=== PATIENT | male | born 1940 | race Caucasian/White ===

== ENCOUNTER → 2019-09-05 | Outpatient (CLI) | payer MEDICARE, OTHER ==
[2019-09-05 16:55] LABS: Basophils # (auto) 0.1 10 ^3/uL (0-0.2); Basophils % (auto) 1.3 % (0.0-2.0); Eosinophils # (auto) 0.6 10 ^3/uL (0-0.8); Eosinophils % (auto) 8.6 % (0.0-7.0); Hemoglobin 13.2 g/dL (13.5-17.5); Lymphocytes # (auto) 1.2 10 ^3/uL (0.4-5.4); Lymphocytes % (auto) 17.5 % (10.0-50.0); Mean Corpuscular Hemoglobin 30.3 pg (28.0-32.0); Mean Corpuscular Hgb Conc. 32.9 g/dL (32.0-36.0); Mean Corpuscular Volume 91.9 fL (80.0-100.0); Monocytes # (auto) 0.8 10 ^3/uL (0-1.3); Monocytes % (auto) 10.9 % (0.0-12.0); Neutrophils # (auto) 4.3 10 ^3/uL (1.6-8.6); Neutrophils % (auto) 61.7 % (37.0-80.0); Nucleated Red Blood Cells % 0.1 %; Platelet Count (auto) 250 10^3/uL (140-450); Red Blood Cells 4.35 10^6/uL (4.5-5.90); Red Cell Distribution Width 15.1 % (11.8-14.3)
[2019-09-05 17:10] LABS: Urine Bacteria MOD /hpf (None Seen); Urine Blood 1+ /uL (Negative); Urine Mucus FEW (None Seen); Urine Specific Gravity 1.019 (1.001-1.035); Urine WBC 678 /hpf (0 - 3); Urine WBC Clumps PRESENT /hpf (None Seen)
[2019-09-05 17:11] LABS: Albumin 3.4 g/dL (3.4-5.0); Calcium 9.2 mg/dL (8.5-10.1); Potassium 4.2 mmol/L (3.5-5.1)
[2019-09-05 17:16] LABS: Bilirubin, Total 0.2 mg/dL (0.2-1.0); Total Protein 7.2 g/dL (6.4-8.2)
[2019-09-05 17:20] LABS: Folate (Folic Acid) 6.59 ng/mL (5.38-24)
== END | disposition home or self-care (01) ==
LOC: LAB 16:06
PROVIDERS: ATTEND Internal Medicine
DX: I10 Essential (primary) hypertension (principal); E55.9 Vitamin D deficiency, unspecified; R73.03 Prediabetes; Z00.00 Encounter for general adult medical examination without abnormal findings
CPT/HCPCS: 36415; 80053; 80061; 81001; 82306; 82607; 82746; 83036; 84443; 85025

== ENCOUNTER 2022-02-03 22:34 | Inpatient (IN) | payer MEDICARE, OTHER ==
[~2022-02-03] VITALS: Ht 177.8 cm; Wt 83.3 kg
[2022-02-03] MEDS ORDERED: ONDANSETRON HCL 4 MG/2 ML VIAL IV ONE (23:45)
[2022-02-03] MEDS ORDERED: MORPHINE SULFATE INJ 2 MG/ml SYRG IV ONE (23:45)
[2022-02-04 00:04] LABS: Basophils # (auto) 0.2 10 ^3/uL (0-0.2); Basophils % (auto) 1.7 % (0.0-2.0); Eosinophils # (auto) 0.2 10 ^3/uL (0-0.8); Hematocrit 41.2 % (41.0-53.0); Hemoglobin 13.4 g/dL (13.5-17.5); Lymphocytes # (auto) 1.4 10 ^3/uL (0.4-5.4); Lymphocytes % (auto) 13.5 % (10.0-50.0); Mean Corpuscular Hemoglobin 29.7 pg (28.0-32.0); Mean Corpuscular Hgb Conc. 32.6 g/dL (32.0-36.0); Mean Corpuscular Volume 91.1 fL (80.0-100.0); Monocytes # (auto) 1.1 10 ^3/uL (0-1.3); Monocytes % (auto) 11.1 % (0.0-12.0); Neutrophils # (auto) 7.2 10 ^3/uL (1.6-8.6); Neutrophils % (auto) 71.7 % (37.0-80.0); Red Blood Cells 4.52 10^6/uL (4.5-5.90); Red Cell Distribution Width 14.6 % (11.8-14.3); White Blood Cell 10.1 10^3/uL (4.4-10.8)
[2022-02-04 00:24] LABS: Albumin 3.6 g/dL (3.4-5.0); BUN/Creatinine Ratio 14.2; Calcium 9.8 mg/dL (8.5-10.1); Potassium 4.1 mmol/L (3.5-5.1)
[2022-02-04 00:27] LABS: Bilirubin, Total 0.6 mg/dL (0.2-1.0); Total Protein 7.7 g/dL (6.4-8.2)
[2022-02-04] MEDS ORDERED: SODIUM CHLORIDE 0.9% 1,000 ML IV ONE (01:30)
[2022-02-04] MEDS ORDERED: levoFLOXacin 750MG 150 ML IV ONE (02:30)
[2022-02-04] MEDS ORDERED: hydrALAZINE HCL 20 MG/ML VL IV ONE (02:30)
[2022-02-04] MEDS ORDERED: ACETAMINOPHEN 325 MG TAB PO PRN (02:45)
[2022-02-04] MEDS ORDERED: HYDROcodone-ACET 5/325MG TAB PO PRN (02:45)
[2022-02-04] MEDS: amLODIPine BESYLATE 5 MG TAB PO SCH (14:06)
[2022-02-04] MEDS: PANTOPRAZOLE 40 MG TAB PO SCH (14:06)
[2022-02-04] MEDS: ENOXAPARIN SOD 30 MG/0.3 ML SYRINGE SC SCH ×2 (14:07→14:11)
[2022-02-04] MEDS: cefTRIAXone 1GM/50ML D5W 50 ML IV SCH (22:47)
[2022-02-04] MEDS: TAMSULOSIN HYDROCHLORIDE 0.4 MG CAP PO SCH (22:47)
[2022-02-05] MEDS: cloNIDine HCL 0.1 MG TAB PO PRN (00:59)
[2022-02-05 01:42] VITALS: BP 172/88
[2022-02-05] MEDS ORDERED: TAMS0.4C36 PO (02:37)
[2022-02-05 05:00] VITALS: BP 115/58
[2022-02-05 06:29] LABS: Basophils # (auto) 0.1 10 ^3/uL (0-0.2); Basophils % (auto) 1.1 % (0.0-2.0); Eosinophils # (auto) 0.3 10 ^3/uL (0-0.8); Eosinophils % (auto) 5.9 % (0.0-7.0); Hematocrit 32.2 % (41.0-53.0); Hemoglobin 10.6 g/dL (13.5-17.5); Lymphocytes # (auto) 1.3 10 ^3/uL (0.4-5.4); Lymphocytes % (auto) 23.3 % (10.0-50.0); Mean Corpuscular Hemoglobin 29.8 pg (28.0-32.0); Mean Corpuscular Hgb Conc. 32.9 g/dL (32.0-36.0); Mean Corpuscular Volume 90.6 fL (80.0-100.0); Monocytes # (auto) 0.9 10 ^3/uL (0-1.3); Monocytes % (auto) 16.8 % (0.0-12.0); Neutrophils % (auto) 52.9 % (37.0-80.0); Nucleated Red Blood Cells % 0.1 %; Red Blood Cells 3.56 10^6/uL (4.5-5.90); Red Cell Distribution Width 14.1 % (11.8-14.3); White Blood Cell 5.6 10^3/uL (4.4-10.8)
[2022-02-05 06:49] LABS: BUN/Creatinine Ratio 16.5; Calcium 8.9 mg/dL (8.5-10.1); Potassium 3.8 mmol/L (3.5-5.1)
[2022-02-05 09:00] VITALS: BP 121/55
[2022-02-05] MEDS: amLODIPine BESYLATE 5 MG TAB PO SCH (10:20)
[2022-02-05] MEDS: cefTRIAXone 1GM/50ML D5W 50 ML IV SCH (10:20)
[2022-02-05] MEDS: PANTOPRAZOLE 40 MG TAB PO SCH (10:20)
[2022-02-05] MEDS: ENOXAPARIN SOD 30 MG/0.3 ML SYRINGE SC SCH (10:20)
[2022-02-05 13:00] VITALS: BP 121/53
[2022-02-05 16:12] LABS: INR 1.03 (0.9-1.15)
[2022-02-05 16:48] VITALS: BP 156/78
[2022-02-05] MEDS: TAMSULOSIN HYDROCHLORIDE 0.4 MG CAP PO SCH (17:21)
[2022-02-05 22:00] VITALS: BP 152/74
[2022-02-06 01:07] LABS: Urine Bacteria FEW /hpf (None Seen); Urine Blood 3+ /uL (Negative); Urine Specific Gravity 1.015 (1.001-1.035); Urine WBC 127 /hpf (0 - 3); Urine WBC Clumps PRESENT /hpf (None Seen)
[2022-02-06 05:00] VITALS: BP 146/76
[2022-02-06 05:59] LABS: Basophils # (auto) 0.1 10 ^3/uL (0-0.2); Basophils % (auto) 0.8 % (0.0-2.0); Eosinophils # (auto) 0.3 10 ^3/uL (0-0.8); Eosinophils % (auto) 5.4 % (0.0-7.0); Hematocrit 34.2 % (41.0-53.0); Hemoglobin 11.1 g/dL (13.5-17.5); Lymphocytes % (auto) 16.1 % (10.0-50.0); Mean Corpuscular Hemoglobin 29.7 pg (28.0-32.0); Mean Corpuscular Hgb Conc. 32.4 g/dL (32.0-36.0); Mean Corpuscular Volume 91.6 fL (80.0-100.0); Monocytes # (auto) 0.7 10 ^3/uL (0-1.3); Monocytes % (auto) 11.7 % (0.0-12.0); Neutrophils # (auto) 4.1 10 ^3/uL (1.6-8.6); Nucleated Red Blood Cells % 0.1 %; Red Blood Cells 3.73 10^6/uL (4.5-5.90); Red Cell Distribution Width 14.6 % (11.8-14.3); White Blood Cell 6.2 10^3/uL (4.4-10.8)
[2022-02-06 06:07] LABS: BUN/Creatinine Ratio 15.6; Calcium 9.1 mg/dL (8.5-10.1); Potassium 4.4 mmol/L (3.5-5.1)
[2022-02-06 09:13] VITALS: BP 164/81
[2022-02-06] MEDS: ENOXAPARIN SOD 30 MG/0.3 ML SYRINGE SC SCH (10:00)
[2022-02-06] MEDS: SODIUM CHLORIDE 0.9% 1,000 ML IV SCH (10:48)
[2022-02-06] MEDS: amLODIPine BESYLATE 5 MG TAB PO SCH (11:00)
[2022-02-06] MEDS: cefTRIAXone 1GM/50ML D5W 50 ML IV SCH (11:00)
[2022-02-06 13:01] VITALS: BP 140/66
[2022-02-06] MEDS: ONDANSETRON HCL 4 MG/2 ML VIAL IV PRN (14:08)
[2022-02-06] MEDS ORDERED: HYDROmorphone HCL 2 MG/ML VL/or syr IV PRN (14:30)
[2022-02-06] MEDS: cloNIDine HCL 0.1 MG TAB PO PRN (17:10)
[2022-02-06 17:30] VITALS: BP 172/90
[2022-02-06] MEDS: TAMSULOSIN HYDROCHLORIDE 0.4 MG CAP PO SCH (18:04)
[2022-02-06 22:00] VITALS: BP 127/67
[2022-02-07 05:00] VITALS: BP 132/58
[2022-02-07] MEDS: SODIUM CHLORIDE 0.9% 1,000 ML IV SCH ×3 (05:45→16:47)
[2022-02-07 06:00] LABS: Basophils # (auto) 0 10 ^3/uL (0-0.2); Basophils % (auto) 0.4 % (0.0-2.0); Eosinophils # (auto) 0 10 ^3/uL (0-0.8); Eosinophils % (auto) 0.8 % (0.0-7.0); Hematocrit 32.7 % (41.0-53.0); Hemoglobin 10.4 g/dL (13.5-17.5); Lymphocytes # (auto) 0.4 10 ^3/uL (0.4-5.4); Lymphocytes % (auto) 6.5 % (10.0-50.0); Mean Corpuscular Hemoglobin 29.8 pg (28.0-32.0); Mean Corpuscular Hgb Conc. 31.8 g/dL (32.0-36.0); Mean Corpuscular Volume 93.8 fL (80.0-100.0); Monocytes # (auto) 0.6 10 ^3/uL (0-1.3); Monocytes % (auto) 10.4 % (0.0-12.0); Neutrophils # (auto) 4.5 10 ^3/uL (1.6-8.6); Neutrophils % (auto) 81.9 % (37.0-80.0); Nucleated Red Blood Cells % 0.1 %; Red Blood Cells 3.49 10^6/uL (4.5-5.90); Red Cell Distribution Width 14.6 % (11.8-14.3); White Blood Cell 5.5 10^3/uL (4.4-10.8)
[2022-02-07 06:22] LABS: BUN/Creatinine Ratio 16.8; Calcium 8.1 mg/dL (8.5-10.1); Potassium 3.9 mmol/L (3.5-5.1)
[2022-02-07 09:00] VITALS: BP 151/71
[2022-02-07] MEDS: cefTRIAXone 1GM/50ML D5W 50 ML IV SCH (09:02)
[2022-02-07] MEDS: ENOXAPARIN SOD 30 MG/0.3 ML SYRINGE SC SCH (10:00)
[2022-02-07] MEDS: amLODIPine BESYLATE 5 MG TAB PO SCH (10:52)
[2022-02-07 13:00] VITALS: BP 134/68
[2022-02-07] MEDS: cloNIDine HCL 0.1 MG TAB PO PRN (16:52)
[2022-02-07 17:00] VITALS: BP 162/84
[2022-02-07] MEDS: TAMSULOSIN HYDROCHLORIDE 0.4 MG CAP PO SCH (18:32)
[2022-02-07 22:00] VITALS: BP 138/66
[2022-02-08] MEDS: SODIUM CHLORIDE 0.9% 1,000 ML IV SCH ×2 (02:00→12:42)
[2022-02-08 05:00] VITALS: BP 148/74
[2022-02-08 06:20] LABS: Basophils # (auto) 0 10 ^3/uL (0-0.2); Basophils % (auto) 0.6 % (0.0-2.0); Eosinophils # (auto) 0.2 10 ^3/uL (0-0.8); Hematocrit 29.3 % (41.0-53.0); Hemoglobin 9.9 g/dL (13.5-17.5); Lymphocytes # (auto) 0.6 10 ^3/uL (0.4-5.4); Lymphocytes % (auto) 14.9 % (10.0-50.0); Mean Corpuscular Hemoglobin 30.7 pg (28.0-32.0); Mean Corpuscular Hgb Conc. 33.6 g/dL (32.0-36.0); Mean Corpuscular Volume 91.3 fL (80.0-100.0); Monocytes # (auto) 0.7 10 ^3/uL (0-1.3); Monocytes % (auto) 16.2 % (0.0-12.0); Neutrophils # (auto) 2.7 10 ^3/uL (1.6-8.6); Neutrophils % (auto) 63.3 % (37.0-80.0); Nucleated Red Blood Cells % 0.1 %; Red Blood Cells 3.21 10^6/uL (4.5-5.90); Red Cell Distribution Width 14.3 % (11.8-14.3); White Blood Cell 4.3 10^3/uL (4.4-10.8)
[2022-02-08 06:32] LABS: Calcium 8.1 mg/dL (8.5-10.1)
[2022-02-08 06:35] LABS: BUN/Creatinine Ratio 18.6
[2022-02-08 08:40] VITALS: BP 139/72
[2022-02-08] MEDS: amLODIPine BESYLATE 5 MG TAB PO SCH (09:52)
[2022-02-08] MEDS: cefTRIAXone 1GM/50ML D5W 50 ML IV SCH (09:52)
[2022-02-08] MEDS: ONDANSETRON HCL 4 MG/2 ML VIAL IV PRN (09:53)
[2022-02-08] MEDS: ENOXAPARIN SOD 30 MG/0.3 ML SYRINGE SC SCH (09:53)
[2022-02-08 13:00] VITALS: BP 141/63
[2022-02-08 17:00] VITALS: BP 165/76
[2022-02-08] MEDS: TAMSULOSIN HYDROCHLORIDE 0.4 MG CAP PO SCH (18:37)
[2022-02-08 22:00] VITALS: BP 183/93
[2022-02-08] MEDS: cloNIDine HCL 0.1 MG TAB PO PRN (22:11)
[2022-02-09] MEDS: ONDANSETRON HCL 4 MG/2 ML VIAL IV PRN (01:24)
[2022-02-09] MEDS ORDERED: hydrALAZINE HCL 20 MG/ML VL IV PRN (02:15)
[2022-02-09 05:00] VITALS: BP 168/83
[2022-02-09 06:48] LABS: Hematocrit 29.8 % (41.0-53.0); Hemoglobin 9.7 g/dL (13.5-17.5); Mean Corpuscular Hemoglobin 29.7 pg (28.0-32.0); Mean Corpuscular Hgb Conc. 32.7 g/dL (32.0-36.0); Red Blood Cells 3.27 10^6/uL (4.5-5.90); White Blood Cell 4.4 10^3/uL (4.4-10.8)
[2022-02-09 06:52] LABS: Basophils % (manual) 0 (0.0-2.0); Blast Cells 0; Myelocytes % 0; Promyelocytes % 0; Reactive Lymphocytes 0
[2022-02-09 07:16] LABS: Potassium 3.8 mmol/L (3.5-5.1)
[2022-02-09 07:26] LABS: BUN/Creatinine Ratio 15.4; Calcium 8.2 mg/dL (8.5-10.1)
[2022-02-09 08:00] VITALS: BP 109/64
[2022-02-09 08:41] VITALS: BP 109/64
[2022-02-09 09:02] LABS: Band Neutrophils % (manual) 6; Eosinophils % (manual) 4 (0-7); Lymphocytes % (manual) 22 (10.0-50.0); Metamyelocytes % 1; Monocytes % (manual) 9 (0-12)
[2022-02-09] MEDS: cefTRIAXone 1GM/50ML D5W 50 ML IV SCH (09:52)
[2022-02-09] MEDS: ENOXAPARIN SOD 30 MG/0.3 ML SYRINGE SC SCH (09:52)
[2022-02-09] MEDS: amLODIPine BESYLATE 5 MG TAB PO SCH (09:52)
[2022-02-09 13:00] VITALS: BP 119/71
[2022-02-09 17:00] VITALS: BP 182/92
[2022-02-09] MEDS: TAMSULOSIN HYDROCHLORIDE 0.4 MG CAP PO SCH (18:16)
[2022-02-09 22:00] VITALS: BP 187/90
[2022-02-09] MEDS: cloNIDine HCL 0.1 MG TAB PO PRN (22:40)
[2022-02-10 05:00] VITALS: BP 186/92
[2022-02-10 06:26] LABS: Hematocrit 31.2 % (41.0-53.0); Hemoglobin 10.6 g/dL (13.5-17.5); Mean Corpuscular Hemoglobin 30.5 pg (28.0-32.0); Mean Corpuscular Volume 89.7 fL (80.0-100.0); Red Blood Cells 3.48 10^6/uL (4.5-5.90); Red Cell Distribution Width 13.9 % (11.8-14.3); White Blood Cell 3.9 10^3/uL (4.4-10.8)
[2022-02-10 06:35] LABS: BUN/Creatinine Ratio 13.7; Calcium 8.9 mg/dL (8.5-10.1)
[2022-02-10 06:54] LABS: Basophils % (manual) 0 (0.0-2.0); Blast Cells 0; Metamyelocytes % 0; Myelocytes % 0; Promyelocytes % 0; Reactive Lymphocytes 0
[2022-02-10] MEDS: cloNIDine HCL 0.1 MG TAB PO PRN ×2 (07:13→17:22)
[2022-02-10 08:00] VITALS: BP 174/109
[2022-02-10] MEDS: cefTRIAXone 1GM/50ML D5W 50 ML IV SCH (09:08)
[2022-02-10 09:15] LABS: Band Neutrophils % (manual) 10; Eosinophils % (manual) 6 (0-7); Lymphocytes % (manual) 35 (10.0-50.0); Monocytes % (manual) 16 (0-12)
[2022-02-10] MEDS ORDERED: ONDANSETRON ODT 4 MG TAB PO PRN (10:30)
[2022-02-10] MEDS: ENOXAPARIN SOD 30 MG/0.3 ML SYRINGE SC SCH (10:33)
[2022-02-10] MEDS: amLODIPine BESYLATE 5 MG TAB PO SCH (10:33)
[2022-02-10 12:00] VITALS: BP 150/70
[2022-02-10 16:00] VITALS: BP 168/78
[2022-02-10] MEDS: TAMSULOSIN HYDROCHLORIDE 0.4 MG CAP PO SCH (17:36)
[2022-02-10 20:00] VITALS: BP 132/72
[2022-02-10 22:00] VITALS: BP 145/78
[2022-02-11] VITALS (7 sets, daily range): BP systolic 146–168; BP diastolic 71–86
[2022-02-11] MEDS: amLODIPine BESYLATE 5 MG TAB PO SCH (10:00)
[2022-02-11] MEDS ORDERED: AML5T PO (14:52)
[2022-02-11] MEDS: TAMSULOSIN HYDROCHLORIDE 0.4 MG CAP PO SCH (18:00)
[2022-02-12] MEDS: cloNIDine HCL 0.1 MG TAB PO PRN (03:54)
[2022-02-12 05:00] VITALS: BP 188/85
[2022-02-12 07:40] LABS: Potassium 3.9 mmol/L (3.5-5.1)
[2022-02-12 07:51] LABS: Albumin 2.8 g/dL (3.4-5.0); BUN/Creatinine Ratio 12.9; Calcium 9.2 mg/dL (8.5-10.1)
[2022-02-12 07:53] LABS: Bilirubin, Total 0.3 mg/dL (0.2-1.0); Total Protein 5.6 g/dL (6.4-8.2)
[2022-02-12 08:00] VITALS: BP 155/74
[2022-02-12] MEDS: amLODIPine BESYLATE 5 MG TAB PO SCH (09:16)
[2022-02-12] MEDS: ENOXAPARIN SOD 30 MG/0.3 ML SYRINGE SC SCH (09:17)
== END 2022-02-12 12:11 | disposition home or self-care (01) | DRG 465 ==
LOC: ER 22:36 → OVERFLOW 02-04 02:43 → EAST 02-04 23:33
PROVIDERS: ADMIT Nurse Practitioner; ATTEND Student in an Organized Health Care Education/Training Program
DX: N13.2 Hydronephrosis with renal and ureteral calculous obstruction (principal); N17.9 Acute kidney failure, unspecified; N18.9 Chronic kidney disease, unspecified; I12.9 Hypertensive chronic kidney disease with stage 1 through stage 4 chronic kidney disease, or unspecified chronic kidney disease; Z20.822 Contact with and (suspected) exposure to COVID-19; N21.0 Calculus in bladder; N40.0 Benign prostatic hyperplasia without lower urinary tract symptoms; Z59.00 Homelessness unspecified; Z87.442 Personal history of urinary calculi
CPT/HCPCS: 36415; 71045; 74176; 80048; 80053; 81001; 83690; 85007; 85025; 85027; 85610; 86850; 86900; 86901; 87040; 87086; 87426; 93306; G0378; J0696; J2405

== ENCOUNTER 2023-07-01 21:04 | Emergency (ER) | payer MEDICARE, OTHER ==
[~2023-07-01] VITALS: Ht 177.8 cm; Wt 81.7 kg
[~2023-07-01 21:04] MED LIST: AML5T PO; TAMS0.4C36 PO
[2023-07-02] MEDS ORDERED: CEPH500C PO (04:02)
[2023-07-02] MEDS ORDERED: MUPI2OIN2 EX (04:02)
[2023-07-02 04:38] VITALS: BP 129/78; PULSE 78; RESP 20; TEMP 97.6
[2023-07-02] MEDS: TETANUS-DIPTH-ACEL PERTUSSIS 0.5ML SYR Tdap IM ONE (05:15)
[2023-07-02 05:39] VITALS: O2SAT 94
[2023-07-02] MEDS ORDERED: ATOR40TA52 PO (20:35)
== END 2023-07-02 05:45 | disposition home or self-care (01) ==
LOC: ER 21:04
DX: S13.9XXA Sprain of joints and ligaments of unspecified parts of neck, initial encounter (principal); S00.83XA Contusion of other part of head, initial encounter; E04.1 Nontoxic single thyroid nodule; I10 Essential (primary) hypertension; Y04.2XXA Assault by strike against or bumped into by another person, initial encounter; Y93.89 Activity, other specified; Y92.89 Other specified places as the place of occurrence of the external cause; Y99.8 Other external cause status
CPT/HCPCS: 70450; 72125; 90715

== ENCOUNTER 2023-07-02 06:12 | Inpatient (IN) | payer MEDICARE, OTHER ==
[~2023-07-02] VITALS: Ht 177.8 cm; Wt 86.9 kg
[~2023-07-02 06:12] MED LIST changes: +CEPH500C PO; +MUPI2OIN2 EX
[2023-07-02 07:39] LABS: Chloride 109 mmol/L (98-107); Potassium 3.8 mmol/L (3.5-5.1); Sodium 140 mmol/L (136-145)
[2023-07-02 07:40] LABS: Anion Gap 9 (5-15); Carbon Dioxide 22 mmol/L (20-30)
[2023-07-02 07:41] LABS: Calcium 9.9 mg/dL (8.7-10.4)
[2023-07-02 07:45] LABS: BUN/Creatinine Ratio 16.3 (10.0-20.0); Blood Urea Nitrogen 32 mg/dL (9-23); Glucose 101 mg/dL (74-106)
[2023-07-02] MEDS: SODIUM CHLORIDE 0.9% 1,000 ML IV ONE ×2 (07:56→09:33)
[2023-07-02] MEDS: cloNIDine HCL 0.1 MG TAB PO ONE (07:56)
[2023-07-02 08:07] VITALS: PULSE 75; RESP 19; O2SAT 99
[2023-07-02 08:31] LABS: Basophils # (auto) 0.1 10 ^3/uL (0-0.2); Eosinophils # (auto) 0.3 10 ^3/uL (0-0.8); Eosinophils % (auto) 3.4 % (0.0-7.0); Hematocrit 40.4 % (41.0-53.0); Hemoglobin 12.9 g/dL (13.5-17.5); Lymphocytes # (auto) 1.5 10 ^3/uL (0.4-5.4); Lymphocytes % (auto) 16.9 % (10.0-50.0); Mean Corpuscular Hemoglobin 29.6 pg (28.0-32.0); Mean Corpuscular Hgb Conc. 31.9 g/dL (32.0-36.0); Monocytes # (auto) 1.2 10 ^3/uL (0-1.3); Monocytes % (auto) 13.9 % (0.0-12.0); Neutrophils # (auto) 5.6 10 ^3/uL (1.6-8.6); Neutrophils % (auto) 64.8 % (37.0-80.0); Nucleated Red Blood Cells % 0.1 %; Red Blood Cells 4.34 10^6/uL (4.5-5.90); Red Cell Distribution Width 16.2 % (11.8-14.3); White Blood Cell 8.7 10^3/uL (4.4-10.8)
[2023-07-02 08:52] LABS: Urine Bacteria FEW /hpf (None Seen); Urine Blood 2+ /uL (Negative); Urine Clarity Turbid (Clear); Urine Color Colorless (Yellow); Urine Protein, UAD 2+ (Negative); Urine Specific Gravity 1.013 (1.001-1.035); Urine Urobilinogen Normal (Negative); Urine WBC 599 /hpf (0 - 3); Urine WBC Clumps PRESENT /hpf (None Seen)
[2023-07-02] MEDS: hydrALAZINE HCL 20 MG/ML VL IV ONE (09:02)
[2023-07-02] MEDS ORDERED: NITROGLYCERIN 0.4 MG SL TAB SL PRN (09:15)
[2023-07-02] MEDS ORDERED: MORPHINE SULFATE INJ 2 MG/ml SYRG IV PRN (09:15)
[2023-07-02] MEDS ORDERED: ACETAMINOPHEN 325 MG TAB PO PRN (09:15)
[2023-07-02 09:30] VITALS: PULSE 65; RESP 14; O2SAT 97
[2023-07-02 09:40] LABS: Triglycerides 86 mg/dL (< 150)
[2023-07-02 09:41] LABS: LDL Cholesterol 171 mg/dL (< 100)
[2023-07-02 09:42] LABS: Cholesterol 225 mg/dL (< 200); HDL Cholesterol 52 mg/dL (40-59)
[2023-07-02] MEDS: ENOXAPARIN SOD 80 MG/0.8ML SYRINGE SC SCH (10:00)
[2023-07-02] MEDS ORDERED: amLODIPine BESYLATE 5 MG TAB PO SCH (10:00)
[2023-07-02] MEDS ORDERED: ENOXAPARIN SOD 100 MG/1 ML SYRINGE SC SCH (10:00)
[2023-07-02 10:43] LABS: Creatinine, Urine 86.99 mg/dL (30.0-125.0)
[2023-07-02] MEDS: ASPirin 81 mg TAB PO SCH (11:59)
[2023-07-02] MEDS: TAMSULOSIN HYDROCHLORIDE 0.4 MG CAP PO SCH (11:59)
[2023-07-02] MEDS: ENOXAPARIN SOD 80 MG/0.8ML SYRINGE SC ONE (11:59)
[2023-07-02] MEDS: CARVEDILOL 3.125 MG TAB PO ONE (12:00)
[2023-07-02] MEDS: amLODIPine BESYLATE 5 MG TAB PO SCH (12:09)
[2023-07-02] MEDS: MUPIROCIN 2% OINT 15gm or 22gm EACHNOSTRI SCH (16:47)
[2023-07-02 18:50] VITALS: BP 135/75; PULSE 61; RESP 18; TEMP 97.5; O2SAT 96
[2023-07-02 19:02] VITALS: BP 129/78; PULSE 61; PULSE 62; RESP 20; TEMP 97.7; O2SAT 100; O2SAT 99
[2023-07-02 20:00] VITALS: BP 129/78; PULSE 62; PULSE 67; RESP 20; TEMP 97.7; O2SAT 100
[2023-07-02] MEDS ORDERED: ATOR40TA52 PO (20:35)
[2023-07-02] MEDS: CARVEDILOL 3.125 MG TAB PO SCH (20:56)
[2023-07-02 21:00] VITALS: BP 129/78; PULSE 62; RESP 20; TEMP 97.7; O2SAT 100
[2023-07-03] VITALS (7 sets, daily range): BP systolic 128–154; BP diastolic 55–82; PULSE 60–74; RESP 17–18; TEMP 97.4–98.2; O2SAT 96–100
[2023-07-03 12:42] LABS: Chloride 112 mmol/L (98-107); Potassium 3.9 mmol/L (3.5-5.1); Sodium 140 mmol/L (136-145)
[2023-07-03 12:43] LABS: Anion Gap 8 (5-15); Calcium 9.2 mg/dL (8.7-10.4); Carbon Dioxide 20 mmol/L (20-30)
[2023-07-03 12:48] LABS: Blood Urea Nitrogen 30 mg/dL (9-23); Glucose 70 mg/dL (74-106)
[2023-07-03] MEDS: AMIODARONE HCL 200 MG TAB PO ONE (15:12)
[2023-07-03] MEDS: cefTRIAXone 1GM/50ML D5W 50 ML IV ONE (15:12)
[2023-07-03] MEDS: hydrALAZINE HCL 20 MG/ML VL IV PRN (15:16)
[2023-07-03] MEDS: AMIODARONE HCL 200 MG TAB PO SCH (21:21)
[2023-07-04] VITALS (8 sets, daily range): BP systolic 132–174; BP diastolic 67–83; PULSE 61–86; RESP 16–19; TEMP 97.4–98.4; O2SAT 96–98
[2023-07-04 06:00] LABS: Chloride 110 mmol/L (98-107); Potassium 4.1 mmol/L (3.5-5.1); Sodium 140 mmol/L (136-145)
[2023-07-04 06:01] LABS: Anion Gap 11 (5-15); Calcium 9.6 mg/dL (8.5-10.1); Carbon Dioxide 19 mmol/L (20-30)
[2023-07-04 06:06] LABS: BUN/Creatinine Ratio 17.1 (10.0-20.0); Blood Urea Nitrogen 37 mg/dL (9-23); Glucose 101 mg/dL (74-106)
[2023-07-04] MEDS: cefTRIAXone 1GM/50ML D5W 50 ML IV SCH (08:57)
[2023-07-04] MEDS: ENOXAPARIN SOD 30 MG/0.3 ML SYRINGE SC SCH (09:02)
[2023-07-04] MEDS ORDERED: MUPIROCIN 2% OINT 15gm or 22gm FOR MRSA NARES EACHNOSTRI SCH (22:00)
[2023-07-05] VITALS (8 sets, daily range): BP systolic 123–169; BP diastolic 63–90; PULSE 65–86; RESP 18–20; TEMP 97.5–98.3; O2SAT 93–97
[2023-07-06] VITALS (8 sets, daily range): BP systolic 144–172; BP diastolic 65–94; PULSE 60–73; RESP 18–20; TEMP 98–98.8; O2SAT 94–99
[2023-07-06] MEDS ORDERED: POTA8TAB38 PO (10:17)
[2023-07-06] MEDS ORDERED: AMIO200T33 PO (10:17)
[2023-07-06] MEDS ORDERED: FURO40TA4 PO (10:17)
[2023-07-06] MEDS ORDERED: NIFE1TAB30 PO (10:17)
[2023-07-06 14:12] LABS: COVID19 ANTIGEN SOFIA FIA NEGATIVE (NEGATIVE)
[2023-07-07] VITALS (9 sets, daily range): BP systolic 140–168; BP diastolic 68–85; PULSE 64–82; RESP 18–20; TEMP 98–98.9; O2SAT 96–99
[2023-07-07] MEDS: SODIUM BICARBONATE 650 MG TAB PO SCH (14:43)
[2023-07-08] VITALS (8 sets, daily range): BP systolic 114–171; BP diastolic 53–83; PULSE 63–73; RESP 16–20; TEMP 97.8–98.3; O2SAT 95–98
[2023-07-08 13:54] LABS: Alanine Aminotransferase 18 U/L (7-40); Albumin 4.2 g/dL (3.2-4.8); Alkaline Phosphatase 104 U/L (46-116); Anion Gap 8 (5-15); Aspartate Aminotransferase 18 U/L (13-40); BUN/Creatinine Ratio 19.1 (10.0-20.0); Bilirubin, Total 0.4 mg/dL (0.2-1.0); Blood Urea Nitrogen 39 mg/dL (9-23); Calcium 9.8 mg/dL (8.5-10.1); Carbon Dioxide 22 mmol/L (20-30); Chloride 109 mmol/L (98-107); Glucose 96 mg/dL (74-106); Potassium 4.4 mmol/L (3.5-5.1); Sodium 139 mmol/L (136-145); Total Protein 7.1 g/dL (5.7-8.2)
[2023-07-09 01:00] VITALS: BP 141/68; PULSE 65; RESP 20; TEMP 97.6; O2SAT 96
[2023-07-09 05:00] VITALS: BP 153/69; PULSE 71; RESP 20; TEMP 98; O2SAT 96
[2023-07-09 08:00] VITALS: PULSE 63
[2023-07-09 09:00] VITALS: BP 155/74; PULSE 71; RESP 16; TEMP 98; O2SAT 98
[2023-07-09] MEDS: ALLOPURINOL 100 MG TAB PO SCH (12:15)
[2023-07-09 13:00] VITALS: BP 151/73; PULSE 64; RESP 18; TEMP 97.6; O2SAT 98
== END 2023-07-09 14:13 | DRG 720 ==
LOC: ER 06:12 → TELE-EAST 09:07 → TELE 09:12 → TELE-EAST 18:20
PROVIDERS: ADMIT Family Medicine; ATTEND Family Medicine
PROC: 05HC33Z Insertion of Infusion Device into Left Basilic Vein, Percutaneous Approach (ICD-10-PCS; principal; 2023-07-06)
PROC: B54NZZA Ultrasonography of Left Upper Extremity Veins, Guidance (ICD-10-PCS; 2023-07-06)
DX: A41.9 Sepsis, unspecified organism (principal); I21.A1 Myocardial infarction type 2; N17.9 Acute kidney failure, unspecified; E44.0 Moderate protein-calorie malnutrition; N13.6 Pyonephrosis; I12.9 Hypertensive chronic kidney disease with stage 1 through stage 4 chronic kidney disease, or unspecified chronic kidney disease; E78.5 Hyperlipidemia, unspecified; S00.83XA Contusion of other part of head, initial encounter; I16.1 Hypertensive emergency; N18.32 Chronic kidney disease, stage 3b; Z20.822 Contact with and (suspected) exposure to COVID-19; Y04.0XXA Assault by unarmed brawl or fight, initial encounter; N32.3 Diverticulum of bladder; E79.0 Hyperuricemia without signs of inflammatory arthritis and tophaceous disease; Z53.20 Procedure and treatment not carried out because of patient's decision for unspecified reasons; N40.0 Benign prostatic hyperplasia without lower urinary tract symptoms; Z79.82 Long term (current) use of aspirin; Z68.27 Body mass index [BMI] 27.0-27.9, adult; Z91.199 Patient's noncompliance with other medical treatment and regimen due to unspecified reason; Y93.89 Activity, other specified; Y92.89 Other specified places as the place of occurrence of the external cause; Y99.8 Other external cause status
CPT/HCPCS: 36415; 74176; 76775; 80048; 80053; 80061; 81001; 82306; 82570; 82962; 83930; 83970; 84100; 84156; 84300; 84443; 84484; 84550; 85025; 87040; 87081; 87086; 87088; 87186; 87426; 97110; 97116; 97530; G0378

== ENCOUNTER 2023-08-21 19:11 | Emergency (ER) | payer MEDICARE, OTHER ==
[~2023-08-21] VITALS: Ht 177.8 cm; Wt 74.9 kg
[~2023-08-21 19:11] MED LIST changes: +AMIO200T33 PO; -AML5T PO; +ATOR40TA52 PO; +FURO40TA4 PO; +NIFE1TAB30 PO; +POTA8TAB38 PO
[2023-08-21 20:08] VITALS: BP 177/98; PULSE 65; RESP 16; TEMP 97.8; O2SAT 100
[2023-08-21] MEDS ORDERED: TRIO1TP EX (21:26)
[2023-08-21] MEDS: diphenhdrAMINE HCL 25 MG CAP PO ONE (22:03)
[2023-08-21] MEDS: DexAMETHasone SOD PHOS 10MG/1ML VIAL INJ IM ONE (22:03)
== END 2023-08-21 23:06 | disposition home or self-care (01) ==
LOC: ER 19:11
DX: L30.9 Dermatitis, unspecified (principal); I12.9 Hypertensive chronic kidney disease with stage 1 through stage 4 chronic kidney disease, or unspecified chronic kidney disease; N18.9 Chronic kidney disease, unspecified
CPT/HCPCS: 96372; 99283; J1100

== ENCOUNTER 2023-12-19 01:07 | Inpatient (IN) | payer MEDICARE, OTHER ==
[~2023-12-19] VITALS: Ht 172.7 cm; Wt 76.5 kg
[~2023-12-19 01:07] MED LIST changes: -TAMS0.4C36 PO; +TAMS0.4C39 PO; +TRIO1TP EX
[2023-12-19 01:36] LABS: Basophils # (auto) 0 10 ^3/uL (0-0.2); Basophils % (auto) 0.4 % (0.0-2.0); Eosinophils # (auto) 0 10 ^3/uL (0-0.8); Eosinophils % (auto) 0.3 % (0.0-7.0); Hemoglobin 14.7 g/dL (13.5-17.5); Lymphocytes # (auto) 1.1 10 ^3/uL (0.4-5.4); Lymphocytes % (auto) 11.6 % (10.0-50.0); Mean Corpuscular Hemoglobin 29.9 pg (28.0-32.0); Mean Corpuscular Hgb Conc. 33.4 g/dL (32.0-36.0); Mean Corpuscular Volume 89.6 fL (80.0-100.0); Monocytes # (auto) 0.7 10 ^3/uL (0-1.3); Monocytes % (auto) 7.1 % (0.0-12.0); Neutrophils # (auto) 7.9 10 ^3/uL (1.6-8.6); Neutrophils % (auto) 80.6 % (37.0-80.0); Platelet Count (auto) 359 10^3/uL (140-450); Red Blood Cells 4.91 10^6/uL (4.5-5.90); White Blood Cell 9.9 10^3/uL (4.4-10.8)
[2023-12-19 02:01] LABS: Alanine Aminotransferase 14 U/L (7-40); Albumin 4.7 g/dL (3.2-4.8); Alkaline Phosphatase 125 U/L (46-116); Anion Gap 12 (5-15); Aspartate Aminotransferase 18 U/L (13-40); BUN/Creatinine Ratio 23.9 (10.0-20.0); Bilirubin, Total 0.6 mg/dL (0.2-1.0); Blood Urea Nitrogen 50 mg/dL (9-23); Calcium 10.8 mg/dL (8.7-10.4); Carbon Dioxide 19 mmol/L (20-31); Chloride 110 mmol/L (98-107); Glucose 131 mg/dL (74-106); Potassium 4.2 mmol/L (3.5-5.1); Sodium 141 mmol/L (136-145); Total Protein 8.6 g/dL (5.7-8.2)
[2023-12-19] MEDS: ONDANSETRON HCL 4 MG/2 ML VIAL IV ONE ×2 (02:13→03:48)
[2023-12-19] MEDS: ONDANSETRON HCL 4 MG/2 ML VIAL ONE ×4 (02:13→08:58)
[2023-12-19] MEDS: SODIUM CHLORIDE 0.9% 1,000 ML IV ONE ×2 (02:14→04:30)
[2023-12-19] MEDS: IOHEXOL 300 MG/ML 100ML BOTTLE IJ ONE (02:49)
[2023-12-19] MEDS ORDERED: CEFEPIME 2GM/50ML NS 50 ML IV ONE (04:00)
[2023-12-19] MEDS: VANCOMYCIN 1GM/200ML PREMIX 200 ML IV ONE ×2 (04:26→04:46)
[2023-12-19] MEDS: PIPERACILLIN-TAZO 4.5GM 100 ML IV ONE ×2 (04:47→04:49)
[2023-12-19] MEDS ORDERED: MORPHINE SULFATE 4 MG/ML SYR/VIAL IV PRN (05:45)
[2023-12-19] MEDS: ONDANSETRON HCL 4 MG/2 ML VIAL IV PRN ×2 (05:55→08:54)
[2023-12-19 06:33] LABS: Urine Bacteria None Seen /hpf (None Seen)
[2023-12-19] MEDS ORDERED: MORPHINE SULFATE INJ 2 MG/ml SYRG IV PRN ×2 (06:45→07:30)
[2023-12-19] MEDS ORDERED: ACETAMINOPHEN 325 MG TAB PO PRN (06:45)
[2023-12-19 06:56] LABS: Urine Blood 2+ /uL (Negative); Urine Clarity Turbid (Clear); Urine Color Colorless (Yellow); Urine Protein, UAD TRACE (Negative); Urine Specific Gravity 1.017 (1.001-1.035); Urine Urobilinogen Normal (Negative); Urine WBC 102 /hpf (0 - 3); Urine pH 7.5 (5.0-9.0)
[2023-12-19] MEDS ORDERED: NITROGLYCERIN 0.4 MG SL TAB SL PRN (07:30)
[2023-12-19 07:32] LABS: Alanine Aminotransferase 12 U/L (7-40); Albumin 3.9 g/dL (3.2-4.8); Alkaline Phosphatase 101 U/L (46-116); Anion Gap 15 (5-15); Aspartate Aminotransferase 21 U/L (13-40); BUN/Creatinine Ratio 27.7 (10.0-20.0); Bilirubin, Total 0.6 mg/dL (0.2-1.0); Blood Urea Nitrogen 52 mg/dL (9-23); Calcium 9.6 mg/dL (8.7-10.4); Carbon Dioxide 16 mmol/L (20-31); Chloride 113 mmol/L (98-107); Glucose 105 mg/dL (74-106); Potassium 3.7 mmol/L (3.5-5.1); Sodium 144 mmol/L (136-145); Total Protein 6.9 g/dL (5.7-8.2)
[2023-12-19 07:38] VITALS: PULSE 76; RESP 19; O2SAT 97
[2023-12-19] MEDS: ASPirin-EC 325mg tab PO ONE ×2 (08:10→08:20)
[2023-12-19] MEDS: cefTRIAXone 1GM/50ML D5W 50 ML IV SCH (08:40)
[2023-12-19] MEDS: cefTRIAXone 1GM/50ML D5W 50 ML IV ONE (08:45)
[2023-12-19] MEDS: hydrALAZINE HCL 20 MG/ML VL ONE (08:57)
[2023-12-19] MEDS: hydrALAZINE HCL 20 MG/ML VL IV PRN (08:57)
[2023-12-19] MEDS: ASPirin 81 mg TAB PO SCH (10:00)
[2023-12-19 10:20] LABS: Basophils # (auto) 0 10 ^3/uL (0-0.2); Basophils % (auto) 0.4 % (0.0-2.0); Eosinophils # (auto) 0 10 ^3/uL (0-0.8); Eosinophils % (auto) 0.5 % (0.0-7.0); Hematocrit 37.3 % (41.0-53.0); Hemoglobin 12.4 g/dL (13.5-17.5); Lymphocytes # (auto) 1.1 10 ^3/uL (0.4-5.4); Lymphocytes % (auto) 10.4 % (10.0-50.0); Mean Corpuscular Hemoglobin 29.6 pg (28.0-32.0); Mean Corpuscular Hgb Conc. 33.3 g/dL (32.0-36.0); Monocytes % (auto) 9.9 % (0.0-12.0); Neutrophils # (auto) 8.3 10 ^3/uL (1.6-8.6); Neutrophils % (auto) 78.8 % (37.0-80.0); Nucleated Red Blood Cells % 0.1 %; Platelet Count (auto) 328 10^3/uL (140-450); Red Blood Cells 4.19 10^6/uL (4.5-5.90); Red Cell Distribution Width 15.9 % (11.8-14.3); White Blood Cell 10.5 10^3/uL (4.4-10.8)
[2023-12-19] MEDS: AZITHROMYCIN 500MG/ 250ML 250 ML IV SCH (10:41)
[2023-12-19] MEDS: amLODIPine BESYLATE 5 MG TAB PO SCH (10:43)
[2023-12-19] MEDS: AZITHROMYCIN 500MG/ 250ML 250 ML IV ONE (10:47)
[2023-12-19] MEDS: amLODIPine BESYLATE 5 MG TAB ONE (10:47)
[2023-12-19] MEDS: METOPROLOL TARTRATE 25 MG TAB ONE (10:48)
[2023-12-19] MEDS: METOPROLOL TARTRATE 25 MG TAB PO SCH (10:49)
[2023-12-19] MEDS: SODIUM CHLOR 0.9% PF (SALINE LOCK) 10ML VIAL/SYR IV SCH (13:53)
[2023-12-19] MEDS: NIFEdipine ER 30 MG TAB PO ONE (15:13)
[2023-12-19] MEDS: ENOXAPARIN SOD 30 MG/0.3 ML SYRINGE SC ONE (15:45)
[2023-12-19 19:00] VITALS: PULSE 72; RESP 15; O2SAT 95
[2023-12-19] MEDS: ATORVASTATIN 20 MG TAB PO SCH (21:49)
[2023-12-19] MEDS ORDERED: ATORVASTATIN 20 MG TAB PO SCH (22:00)
[2023-12-20] VITALS (13 sets, daily range): BP systolic 127–154; BP diastolic 51–77; PULSE 64–86; RESP 16–21; TEMP 97.3–98.2; O2SAT 97–100
[2023-12-20 06:09] LABS: Basophils # (auto) 0 10 ^3/uL (0-0.2); Basophils % (auto) 0.3 % (0.0-2.0); Eosinophils # (auto) 0.1 10 ^3/uL (0-0.8); Eosinophils % (auto) 0.5 % (0.0-7.0); Hematocrit 39.6 % (41.0-53.0); Hemoglobin 12.9 g/dL (13.5-17.5); Lymphocytes # (auto) 1.1 10 ^3/uL (0.4-5.4); Lymphocytes % (auto) 9.9 % (10.0-50.0); Mean Corpuscular Hemoglobin 29.4 pg (28.0-32.0); Mean Corpuscular Hgb Conc. 32.6 g/dL (32.0-36.0); Mean Corpuscular Volume 90.2 fL (80.0-100.0); Monocytes # (auto) 1.3 10 ^3/uL (0-1.3); Monocytes % (auto) 11.5 % (0.0-12.0); Neutrophils # (auto) 8.7 10 ^3/uL (1.6-8.6); Neutrophils % (auto) 77.8 % (37.0-80.0); Platelet Count (auto) 337 10^3/uL (140-450); Red Blood Cells 4.39 10^6/uL (4.5-5.90); Red Cell Distribution Width 16.1 % (11.8-14.3); White Blood Cell 11.3 10^3/uL (4.4-10.8)
[2023-12-20 06:37] LABS: Alanine Aminotransferase 22 U/L (7-40); Alkaline Phosphatase 99 U/L (46-116); Anion Gap 12 (5-15); Aspartate Aminotransferase 65 U/L (13-40); BUN/Creatinine Ratio 18.3 (10.0-20.0); Blood Urea Nitrogen 41 mg/dL (9-23); Calcium 9.7 mg/dL (8.7-10.4); Carbon Dioxide 17 mmol/L (20-31); Chloride 113 mmol/L (98-107); Glucose 106 mg/dL (74-106); Potassium 3.6 mmol/L (3.5-5.1); Sodium 142 mmol/L (136-145)
[2023-12-20 06:38] LABS: Bilirubin, Total 0.5 mg/dL (0.2-1.0); Total Protein 7.1 g/dL (5.7-8.2)
[2023-12-20] MEDS: NIFEdipine ER 30 MG TAB PO SCH (09:48)
[2023-12-20] MEDS: ENOXAPARIN SOD 30 MG/0.3 ML SYRINGE SC SCH (09:52)
[2023-12-20] MEDS: DOXYCYCLINE 100MG/250ML 250 ML IV SCH (12:00)
[2023-12-20] MEDS: DOXYCYCLINE 100 MG TAB/CAP PO ONE (16:36)
[2023-12-20] MEDS: PANTOPRAZOLE 40 MG TAB PO SCH (17:23)
[2023-12-20 18:33] LABS: Rapid Influenza A Negative (Negative); Rapid Influenza B Negative (Negative)
[2023-12-20 18:34] LABS: COVID19 ANTIGEN SOFIA FIA NEGATIVE (NEGATIVE)
[2023-12-20] MEDS: METOCLOPRAMIDE HCL 5MG/ml INJ 2ml VIAL IV ONE (22:33)
[2023-12-20] MEDS: methylPREDNISolone SOD SUCC 40 MG/ML VL IV SCH (22:33)
[2023-12-20] MEDS: ALBUTEROL SULF 2.5 MG/0.5ML(0.5%) NEB SOLN NEB SCH (23:37)
[2023-12-21] VITALS (16 sets, daily range): BP systolic 101–164; BP diastolic 56–86; PULSE 61–89; RESP 16–22; TEMP 97.3–98.3; O2SAT 96–100
[2023-12-21 07:24] LABS: Basophils # (auto) 0 10 ^3/uL (0-0.2); Basophils % (auto) 0.2 % (0.0-2.0); Eosinophils # (auto) 0 10 ^3/uL (0-0.8); Hematocrit 41.2 % (41.0-53.0); Hemoglobin 13.8 g/dL (13.5-17.5); Lymphocytes # (auto) 0.6 10 ^3/uL (0.4-5.4); Lymphocytes % (auto) 6.8 % (10.0-50.0); Mean Corpuscular Hemoglobin 29.9 pg (28.0-32.0); Mean Corpuscular Hgb Conc. 33.6 g/dL (32.0-36.0); Mean Corpuscular Volume 89.1 fL (80.0-100.0); Monocytes # (auto) 0.1 10 ^3/uL (0-1.3); Neutrophils # (auto) 7.6 10 ^3/uL (1.6-8.6); Nucleated Red Blood Cells % 0.1 %; Platelet Count (auto) 381 10^3/uL (140-450); Red Blood Cells 4.62 10^6/uL (4.5-5.90); Red Cell Distribution Width 15.6 % (11.8-14.3); White Blood Cell 8.3 10^3/uL (4.4-10.8)
[2023-12-21 07:27] LABS: Anion Gap 9 (5-15); Calcium 9.6 mg/dL (8.7-10.4); Carbon Dioxide 18 mmol/L (20-31); Chloride 110 mmol/L (98-107); Potassium 3.8 mmol/L (3.5-5.1); Sodium 137 mmol/L (136-145)
[2023-12-21 07:33] LABS: BUN/Creatinine Ratio 18.7 (10.0-20.0); Blood Urea Nitrogen 41 mg/dL (9-23); Glucose 164 mg/dL (74-106)
[2023-12-21] MEDS ORDERED: CARV6.2551 PO (13:21)
[2023-12-21] MEDS ORDERED: ROSU10TA64 PO (13:21)
[2023-12-21] MEDS ORDERED: DOCU-94 PO (13:21)
[2023-12-21] MEDS ORDERED: FERR325T20 PO (13:21)
[2023-12-21 13:27] LABS: Phosphorus 3.2 mg/dL (2.4-5.1)
[2023-12-21] MEDS: SODIUM BICARB 50mEq/50ml Vial 50 ML in SOD CHL 0.45% 1,000 ML IV SCH (15:52)
[2023-12-21] MEDS: METOCLOPRAMIDE HCL 5MG/ml INJ 2ml VIAL IV PRN (21:08)
[2023-12-22] VITALS (17 sets, daily range): BP systolic 118–161; BP diastolic 54–127; PULSE 59–172; RESP 14–22; TEMP 96.6–97.7; O2SAT 95–100
[2023-12-22] MEDS: DOCUSATE SOD 100 MG CAP PO PRN (03:13)
[2023-12-22 04:07] LABS: Protein, Urine 47.9 mg/dL (1-14)
[2023-12-22 04:10] LABS: Creatinine, Urine 78.51 mg/dL (30.0-125.0); Urine Protein/Creatinine Ratio 0.61
[2023-12-22 07:05] LABS: Basophils # (auto) 0 10 ^3/uL (0-0.2); Basophils % (auto) 0.1 % (0.0-2.0); Eosinophils # (auto) 0 10 ^3/uL (0-0.8); Eosinophils % (auto) 0.2 % (0.0-7.0); Hematocrit 38.9 % (41.0-53.0); Hemoglobin 13.1 g/dL (13.5-17.5); Lymphocytes # (auto) 1.6 10 ^3/uL (0.4-5.4); Lymphocytes % (auto) 11.9 % (10.0-50.0); Mean Corpuscular Hemoglobin 29.7 pg (28.0-32.0); Mean Corpuscular Hgb Conc. 33.7 g/dL (32.0-36.0); Mean Corpuscular Volume 88.3 fL (80.0-100.0); Monocytes # (auto) 1.4 10 ^3/uL (0-1.3); Monocytes % (auto) 10.6 % (0.0-12.0); Neutrophils # (auto) 10.5 10 ^3/uL (1.6-8.6); Neutrophils % (auto) 77.2 % (37.0-80.0); Platelet Count (auto) 374 10^3/uL (140-450); Red Blood Cells 4.41 10^6/uL (4.5-5.90); Red Cell Distribution Width 15.7 % (11.8-14.3); White Blood Cell 13.6 10^3/uL (4.4-10.8)
[2023-12-22 07:18] LABS: Chloride 107 mmol/L (98-107); Potassium 3.6 mmol/L (3.5-5.1); Sodium 137 mmol/L (136-145)
[2023-12-22 07:19] LABS: Anion Gap 12 (5-15); Calcium 9.5 mg/dL (8.7-10.4); Carbon Dioxide 18 mmol/L (20-31)
[2023-12-22 07:24] LABS: BUN/Creatinine Ratio 22.3 (10.0-20.0); Blood Urea Nitrogen 48 mg/dL (9-23); Glucose 94 mg/dL (74-106)
[2023-12-22] MEDS: AMIODARONE BOLUS KIT 100 ML IV ONE ×2 (08:40→08:49)
[2023-12-22] MEDS: AMIODARONE 450mg/250ml AE 250 ML IV SCH ×2 (08:55→14:55)
[2023-12-22] MEDS: MAGNESIUM SULFATE 1GM/100ML 100 ML IV SCH (15:27)
[2023-12-22 18:23] LABS: Chloride 109 mmol/L (98-107); Potassium 3.8 mmol/L (3.5-5.1); Sodium 137 mmol/L (136-145)
[2023-12-22 18:24] LABS: Anion Gap 8 (5-15); Calcium 8.7 mg/dL (8.7-10.4); Carbon Dioxide 20 mmol/L (20-31)
[2023-12-22 18:29] LABS: BUN/Creatinine Ratio 22.4 (10.0-20.0); Blood Urea Nitrogen 45 mg/dL (9-23); Glucose 102 mg/dL (74-106)
[2023-12-22] MEDS: METOPROLOL TARTRATE 25 MG TAB PO SCH (21:43)
[2023-12-23] VITALS (12 sets, daily range): BP systolic 128–150; BP diastolic 72–81; PULSE 55–96; RESP 16–18; TEMP 97–98.6; O2SAT 94–98
[2023-12-23 06:20] LABS: Basophils # (auto) 0.1 10 ^3/uL (0-0.2); Basophils % (auto) 0.8 % (0.0-2.0); Eosinophils # (auto) 0.2 10 ^3/uL (0-0.8); Eosinophils % (auto) 1.7 % (0.0-7.0); Hematocrit 41.9 % (41.0-53.0); Lymphocytes # (auto) 1.4 10 ^3/uL (0.4-5.4); Lymphocytes % (auto) 10.3 % (10.0-50.0); Mean Corpuscular Hemoglobin 29.7 pg (28.0-32.0); Mean Corpuscular Hgb Conc. 30.9 g/dL (32.0-36.0); Mean Corpuscular Volume 95.9 fL (80.0-100.0); Monocytes # (auto) 1.2 10 ^3/uL (0-1.3); Monocytes % (auto) 9.1 % (0.0-12.0); Neutrophils # (auto) 10.3 10 ^3/uL (1.6-8.6); Neutrophils % (auto) 78.1 % (37.0-80.0); Nucleated Red Blood Cells % 0.2 %; Platelet Count (auto) 316 10^3/uL (140-450); Red Blood Cells 4.37 10^6/uL (4.5-5.90); Red Cell Distribution Width 17.4 % (11.8-14.3); White Blood Cell 13.2 10^3/uL (4.4-10.8)
[2023-12-23 08:08] LABS: Chloride 112 mmol/L (98-107); Sodium 140 mmol/L (136-145)
[2023-12-23 08:09] LABS: Anion Gap 13 (5-15); Carbon Dioxide 15 mmol/L (20-31)
[2023-12-23 08:10] LABS: Calcium 8.8 mg/dL (8.7-10.4)
[2023-12-23 08:14] LABS: BUN/Creatinine Ratio 26.9 (10.0-20.0); Blood Urea Nitrogen 53 mg/dL (9-23); Glucose 92 mg/dL (74-106)
[2023-12-23] MEDS: MUPIROCIN 2% OINT 15gm or 22gm FOR MRSA NARES EACHNOSTRI SCH (10:00)
[2023-12-23] MEDS ORDERED: AMIODARONE HCL 200 MG TAB PO SCH (10:00)
[2023-12-23 10:03] LABS: Base Excess -7.2 mmol/L (-2.0-3.0)
[2023-12-23] MEDS: AMIODARONE HCL 200 MG TAB PO SCH (10:24)
[2023-12-23] MEDS: METOPROLOL TARTRATE 25 MG TAB PO SCH (10:26)
[2023-12-24] VITALS (9 sets, daily range): BP systolic 132–174; BP diastolic 70–91; PULSE 56–67; RESP 14–18; TEMP 97.5–98.1; O2SAT 91–99
[2023-12-24 05:41] LABS: Basophils # (auto) 0 10 ^3/uL (0-0.2); Basophils % (auto) 0.5 % (0.0-2.0); Eosinophils # (auto) 0.5 10 ^3/uL (0-0.8); Eosinophils % (auto) 5.2 % (0.0-7.0); Hemoglobin 12.5 g/dL (13.5-17.5); Lymphocytes # (auto) 1.1 10 ^3/uL (0.4-5.4); Lymphocytes % (auto) 12.4 % (10.0-50.0); Mean Corpuscular Hemoglobin 30.1 pg (28.0-32.0); Mean Corpuscular Hgb Conc. 33.8 g/dL (32.0-36.0); Monocytes % (auto) 10.9 % (0.0-12.0); Neutrophils # (auto) 6.4 10 ^3/uL (1.6-8.6); Platelet Count (auto) 271 10^3/uL (140-450); Red Blood Cells 4.15 10^6/uL (4.5-5.90); Red Cell Distribution Width 15.6 % (11.8-14.3)
[2023-12-24 05:54] LABS: Anion Gap 8 (5-15); Carbon Dioxide 21 mmol/L (20-31); Chloride 110 mmol/L (98-107); Potassium 3.7 mmol/L (3.5-5.1); Sodium 139 mmol/L (136-145)
[2023-12-24 05:55] LABS: Calcium 8.6 mg/dL (8.7-10.4)
[2023-12-24 06:00] LABS: BUN/Creatinine Ratio 23.2 (10.0-20.0); Glucose 101 mg/dL (74-106)
[2023-12-24 06:15] LABS: Blood Urea Nitrogen 38 mg/dL (9-23)
[2023-12-24] MEDS ORDERED: METO25TA5 PO (17:46)
[2023-12-24] MEDS ORDERED: AMIO100T6 PO (17:46)
[2023-12-25] VITALS (9 sets, daily range): BP systolic 139–157; BP diastolic 63–78; PULSE 58–97; RESP 16–19; TEMP 97.8–98.4; O2SAT 93–98
[2023-12-25] MEDS: HYDROcodone-ACET 5/325MG TAB PO PRN (02:05)
[2023-12-25] MEDS: ENOXAPARIN SOD 40 MG/0.4 ML SYRINGE SC SCH (10:00)
[2023-12-25] MEDS: TAMSULOSIN HYDROCHLORIDE 0.4 MG CAP PO ONE (11:33)
[2023-12-25] MEDS: METOPROLOL TARTRATE 25 MG TAB PO SCH (11:35)
[2023-12-25] MEDS: TAMSULOSIN HYDROCHLORIDE 0.4 MG CAP PO SCH (17:01)
[2023-12-25] MEDS ORDERED: DOXYCYCLINE 100MG/250ML 250 ML IV SCH (22:00)
[2023-12-26 01:00] VITALS: BP 154/72; PULSE 60; RESP 18; TEMP 97.8; O2SAT 96
[2023-12-26 05:00] VITALS: BP 148/70; PULSE 63; RESP 18; TEMP 97.8; O2SAT 95
[2023-12-26 08:00] VITALS: PULSE 63; RESP 17; O2SAT 95
[2023-12-26 09:00] VITALS: BP 156/66; PULSE 63; RESP 17; TEMP 98.2; O2SAT 95
[2023-12-26 10:00] VITALS: O2SAT 95
[2023-12-26] MEDS: AMIODARONE HCL 200 MG TAB PO SCH (10:46)
== END 2023-12-26 13:19 | disposition home or self-care (01) | DRG 720 ==
LOC: EDBD 01:07 → ER 01:07 → EDUNIT# 01:07 → TELE 07:29 → TELE-WESTW 23:15 → TELE-EAST 12-22 20:03
PROVIDERS: ADMIT Internal Medicine; ATTEND Internal Medicine
DX: A41.9 Sepsis, unspecified organism (principal); N17.0 Acute kidney failure with tubular necrosis; I21.A1 Myocardial infarction type 2; J15.69 Pneumonia due to other Gram-negative bacteria; E87.20 Acidosis, unspecified; I27.20 Pulmonary hypertension, unspecified; I47.10 Supraventricular tachycardia, unspecified; J15.9 Unspecified bacterial pneumonia; I48.91 Unspecified atrial fibrillation; I16.1 Hypertensive emergency; I44.0 Atrioventricular block, first degree; N18.9 Chronic kidney disease, unspecified; N21.0 Calculus in bladder; N18.30 Chronic kidney disease, stage 3 unspecified; I12.9 Hypertensive chronic kidney disease with stage 1 through stage 4 chronic kidney disease, or unspecified chronic kidney disease; N40.0 Benign prostatic hyperplasia without lower urinary tract symptoms; R73.03 Prediabetes; N13.6 Pyonephrosis; Z79.899 Other long term (current) drug therapy; Z91.199 Patient's noncompliance with other medical treatment and regimen due to unspecified reason
CPT/HCPCS: 36415; 36600; 71045; 74177; 80048; 80053; 81001; 82306; 82570; 82805; 83036; 83735; 83970; 84100; 84156; 84300; 84484; 85025; 87081; 87086; 87426; 87804; 93005; 93306; 94640; 96365; 96375; 99291; G0378; J2405; J2543; J3490